=== PATIENT | female | born 1985 | race Caucasian/White ===

== ENCOUNTER 2024-04-25 08:14 | Inpatient (IN) | payer BC, SELFPAY ==
[2024-04-25] MEDS: LR 1000 IV (08:45)
[2024-04-25 09:00] VITALS: BP 118/76; BMI 29.7
[2024-04-25 09:01] LABS: Hematocrit 36.7 % (37.0-47.0); Mean Corp Hgb Conc. 35.4 g/dL (33.0-37.0); Mean Corpuscular Hgb 31.4 pg (27.0-31.0); Mean Corpuscular Volume 88.6 fL (81.0-99.0); Mean Platelet Volume 9.1 fL (7.4-10.4); Platelet Count 182 10^3/uL (130-400); Red Blood Cell Count 4.14 10^6/uL (4.20-5.40); Red Cell Dist. Width 13.3 % (11.5-14.5); White Blood Cell Count 12.5 10^3/uL (4.8-10.8)
[2024-04-25] MEDS: TYLENOL 1000 MG PO (09:46)
[2024-04-25] MEDS: ANCEF 10 IV (09:46)
[2024-04-25] MEDS: BICITRA 30 ML PO (09:46)
[2024-04-25] MEDS: PITOCIN 30 UNITS/NSS 500 ML IV (12:00)
[2024-04-25] MEDS: TORADOL 15 MG IV ×2 (13:00→18:26)
[2024-04-26] MEDS: TORADOL 15 MG IV ×2 (00:41→06:26)
[2024-04-26 07:00] LABS: Hematocrit 33.1 % (37.0-47.0); Hemoglobin 11.7 g/dL (12.0-16.0); Mean Corp Hgb Conc. 35.3 g/dL (33.0-37.0); Mean Corpuscular Hgb 31.1 pg (27.0-31.0); Mean Platelet Volume 9.6 fL (7.4-10.4); Platelet Count 200 10^3/uL (130-400); Red Blood Cell Count 3.76 10^6/uL (4.20-5.40); Red Cell Dist. Width 13.2 % (11.5-14.5); White Blood Cell Count 20.8 10^3/uL (4.8-10.8)
[2024-04-26] MEDS: PRENATAL PLUS 1 TABLET PO (08:17)
--- NOTE | 2024-04-26 09:08 | W.PN.ANS.POP ---
Anesthesia Post Operative
- Anesthesia Post Op Note
Vital Signs Stable-See Nursing Note: Yes
Airway Patent: Yes
Adequate Pain Control: Yes
Change in Mental Status: Yes
Current Postoperative Nausea & Vomiting: No
Anesthesia Complications: No
General Anesthetic Recall: No
Unplanned Admission: No
Post Op Hydration Adequate: Yes
[2024-04-26 14:47] LABS: Syphilis/T. pallidum Ab Reflex Negative (Negative)
[2024-04-26] MEDS: MOTRIN 600 MG PO ×2 (17:14→23:07)
[2024-04-26] MEDS: TYLENOL 650 MG PO (23:07)
[2024-04-27] MEDS: MOTRIN 600 MG PO (05:40)
[2024-04-27] MEDS: TYLENOL 650 MG PO (05:40)
[2024-04-27] MEDS: PRENATAL PLUS 1 TABLET PO (07:55)
--- NOTE | 2024-04-27 12:04 | W.DS.TRANS ---
DC Summary - [employer]
-
Discharge Instructions:
Discharge Diagnosis/Procedures section
Instructions:
Stand-Alone Forms: LDRP Delivery
Changes to Home Medications: No
Discharge Medications:
DC Medications w/original date entered in [facility] [employer]
vitamin no.[id number] 90 mg-folate 1 mg-dha 200 mg capsule (Vitafol Fe Plus) 1 ea PO DAILY Supplement 01/05/22
acetaminophen 325 mg tablet 650 mg (2 x 325 mg) PO Q4HPRN PRN mild pain #0 tabs 04/27/24
ibuprofen 600 mg tablet 600 mg PO Q6HPRN PRN cramps #30 tabs 04/27/24
sennosides 8.6 mg-docusate sodium 50 mg tablet (Stool Softener-Stimulant Laxative) 1 tab PO DAILYPRN PRN constipation #0 tabs 04/27/24
simethicone 80 mg chewable tablet 80 mg PO TIDPRN PRN flatulence #0 tabs 04/27/24
Home Medication Changes
Pending Results: No
Total time spent discharging patient (in min): 20
== END 2024-04-27 13:41 | disposition home or self-care (01) | DRG 788 ==
LOC: LDRP 08:14
PROVIDERS: ADMITTING PHYSICIAN Obstetrics & Gynecology; FAMILY PHYSICIAN Family Medicine
PROC: 10D00Z1 Extraction of Products of Conception, Low, Open Approach (ICD-10-PCS; 2024-04-25)
DX: O34.211 Maternal care for low transverse scar from previous cesarean delivery (principal); N85.8 Other specified noninflammatory disorders of uterus; O69.81X0 Labor and delivery complicated by cord around neck, without compression, not applicable or unspecified; Z3A.39 39 weeks gestation of pregnancy; Z37.0 Single live birth
CPT/HCPCS: 36415; 85027; 86780; 86850; 86900; 86901